=== PATIENT | female | born 1965 ===

== ENCOUNTER 2024-06-06 08:23 | Outpatient (AMB) | payer MEDICAID, SELFPAY ==
[2024-06-06 08:49] VITALS: BP 150/60; PULSE 70; RESP 18; TEMP 36.3; O2SAT 96; BMI 33.5
--- NOTE | 2024-06-06 08:49 | PD.ORTHCLVIS ---
Vital signs 06/06/24 08:49 Height 1.65 m Height Method Measured Weight 91.229 kg Weight Measurement Method Standing Scale BMI 33.5 BP 150/60 H Blood Pressure Source Automatic Cuff Blood Pressure Location Right Upper Arm Position Sitting Respiration 18 Pulse 70 Pulse Source Monitor Temp 97.4 F Temp Source Temporal Artery Scan Pulse Oximetry (%) 96 Oxygen Delivery Method Room Air Med/Allergies Allergies & Medications Allergies No Known Allergies Allergy (Verified 06/06/24 09:05) Medication Reconciliation ibuprofen 400 mg tablet 400 mg PO Q8H 06/06/24 [History Confirmed 06/06/24] meloxicam 7.5 mg tablet 7.5 mg PO QDAY #45 tabs 06/06/24 [Rx] Exam Exam Breathing is nonlabored. Patient has a normal mood and affect. Bilateral extremities were evaluated and demonstrates sensation intact to light touch. Palpable pedal pulses are present. No significant edema is present. Bilateral hips were examined. The patient has no pain with log roll of the hips. Internal rotation to 30 degrees and external rotation to 30 degrees is painless. Negative FADIR. Left knee was examined today. The left knee is in reasonable alignment. Range of motion from 0-120 degrees. Knee is stable to varus and valgus as well as AP translation with <5mm. Patient has a negative McMurrays. There is no pain with patellofemoral compression and no crepitus noted. The knee is nontender to palpation. The right knee was also examined. The right knee is in varus alignment. Range of motion from 0-115 degrees. Knee is stable to varus and valgus as well as AP translation with <5mm. Patient has a negative McMurrays. There is no pain with patellofemoral compression and no crepitus noted. The knee is tender to palpation medially. X-rays demonstrate mild arthritis. This is from [facility]. There is an MRI as well that demonstrates a contusion and extruded medial meniscus Assessment and Plan Problem List (1) Pain in right knee: Status: Acute Plan: Patient is a 59-year-old female with right knee pain and right knee arthritis. The pain is medial. We discussed nonoperative and operative options. We will start with continued conservative treatment We recommend anti-inflammatories And injections. She would like to start with anti-inflammatories and see how it goes from the Office Procedures [facility] Level of Care Nursing/Assessment Patient Status: Initial/New Patient Nursing Assessment/Reassesment: Medication Reconciliation, Update PMH in EMR and Vital Signs Coordination of Care: Complex Care and Chronic Disease 1-5, Education Complex Pt/Fam, Consent,records obtained, informed consent, 1 Ins Authorization, Lab and Imaging orders, Results/Orders obtained and Staff clarify orders Special Needs: Language special needs New Patient Charge New Patient Point Assignment: 1124 New Patient Point Charge: RUG DESIGNER Level 4 ([id number]) MA Intake Visit Data Collection New Patient or Established: New Patient (never been to [facility]) Reason for Visit:: RT KNEE PAIN 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 PCP or OBGYN visit in last 3 months: Yes Hx Now: No Do You Feel Safe at Home: Yes Authorities Contacted: N/A Questionairres Past Medical History Past Medical History Have you ever been diagnosed with any of the following: Respiratory Problems Smoking: No Smoking Cessation Counseling: No Smoking Exposure: No Subjective Visit Visit for: new patient and knee Immunization / Flu Flu Vaccine in the Last 12 Months: No Flu Vaccine Exclusion Criteria: No Exclusion Criteria History of Present Illness Chief complaint: right knee pain Patient is a 59-year-old female with right knee pain has been ongoing for 5 months. She is not any conservative treatment except for physical therapy. She reports that the pain did improve with physical therapy. She reports she initially had considerable swelling but it has improved Pain Pain level (0-10): 6 Pain location: anterior Pain quality: sharp Pain timing: night and stairs Associated signs & symptoms: stiffness Ambulatory data Ambulatory device: none Treatments Number of previous injections: 0 Improvement with previous injections: No Improvement with PT: Yes Improvement with NSAIDS: n/a Review of Systems Review of Systems: All systems negative unless otherwise noted in HPI.
== END 2024-06-06 09:11 | disposition home or self-care (01) ==
PROVIDERS: Supervising Provider Orthopaedic Surgery Adult Reconstructive Orthopaedic Surgery; Visit Provider Orthopaedic Surgery Adult Reconstructive Orthopaedic Surgery
DX: M25.561 Pain in right knee (principal); M17.11 Unilateral primary osteoarthritis, right knee
CPT/HCPCS: 99203; 99204; G0463

== ENCOUNTER 2024-06-29 09:06 | Outpatient (AMB) | payer MEDICAID, SELFPAY ==
[2024-06-29 09:29] VITALS: BP 149/81; PULSE 63; RESP 18; TEMP 36.9; O2SAT 97; BMI 33.9
--- NOTE | 2024-06-29 09:29 | ORTHONT_ITS ---
Vital signs 06/29/24 09:29 Height 1.65 m Height Method Stated Weight 92.334 kg Weight Measurement Method Standing Scale BMI 33.9 BP 149/81 H Blood Pressure Source Automatic Cuff Blood Pressure Location Right Upper Arm Position Sitting Respiration 18 Pulse 63 Pulse Source Monitor Temp 98.4 F Temp Source Temporal Artery Scan Pulse Oximetry (%) 97 Oxygen Delivery Method Room Air Med/Allergies Allergies & Medications Allergies No Known Allergies Allergy (Verified 06/29/24 09:30) Medication Reconciliation ibuprofen 400 mg tablet 400 mg PO Q8H 06/06/24 [History Confirmed 06/29/24] meloxicam 7.5 mg tablet 7.5 mg PO QDAY #45 tabs 06/06/24 [Rx Confirmed 06/29/24] Exam Exam Breathing is nonlabored. Patient has a normal mood and affect. Bilateral extremities were evaluated and demonstrates sensation intact to light touch. Palpable pedal pulses are present. No significant edema is present. Bilateral hips were examined. The patient has no pain with log roll of the hips. Internal rotation to 30 degrees and external rotation to 30 degrees is painless. Negative FADIR. Left knee was examined today. The left knee is in reasonable alignment. Range of motion from 0-120 degrees. Knee is stable to varus and valgus as well as AP translation with <5mm. Patient has a negative McMurrays. There is no pain with patellofemoral compression and no crepitus noted. The knee is nontender to palpation. The right knee was also examined. The right knee is in varus alignment. Range of motion from 0-115 degrees. Knee is stable to varus and valgus as well as AP translation with <5mm. Patient has a negative McMurrays. There is no pain with patellofemoral compression and no crepitus noted. The knee is tender to palpation medially. X-rays demonstrate mild arthritis. This is from [facility]. There is an MRI as well that demonstrates a contusion and extruded medial meniscus Assessment and Plan Problem List (1) Pain in right knee: Status: Acute Plan: Patient is a 59-year-old female with right knee pain and right knee arthritis. The pain is medial. We discussed nonoperative and operative options. We will start with continued conservative treatment We recommend anti-inflammatories And injections. She would like to continue NSAIDs and does not want an injection today Office Procedures [facility] Level of Care Nursing/Assessment Patient Status: Established Patient Nursing Assessment/Reassesment: Medication Reconciliation, Update PMH in EMR and Vital Signs Coordination of Care: Complex Care and Chronic Disease 1-5, Consent,records obtained, informed consent, Education Simp Pt/Fam, Results/Orders obtained and Staff clarify orders Special Needs: Language special needs (TURKISH ) Established Patient Charge Established Patient Point Assignment: 90 Established Patient Point Charge: EP Level 3 (80-115) MA Intake Visit Data Collection New Patient or Established: Established Patient (seen at [facility] within 3 years) Reason for Visit:: RT KNEE SWOLLEN Seen by Clinical Staff ONLY (RN/MA): No Power 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 PCP or OBGYN visit in last 3 months: Yes Hx Now: No Do You Feel Safe at Home: Yes Authorities Contacted: N/A Questionairres Past Medical History Past Medical History Have you ever been diagnosed with any of the following: Respiratory Problems Smoking: No Smoking Cessation Counseling: No Smoking Exposure: No Subjective Visit Visit for: follow up visit and knee (RIGHT KNEE ) Immunization / Flu Flu Vaccine in the Last 12 Months: No Flu Vaccine Exclusion Criteria: Refused by Patient History of Present Illness Chief complaint: right knee pain Patient is a 59-year-old female with right knee pain has been ongoing for 5 months. She is not any conservative treatment except for physical therapy. She reports that the pain did improve with physical therapy. She reports she initially had considerable swelling but it has improved She has done well with NSAIDS Personal History Red flag PMH: none Pain Pain level (0-10): 0 (RIGHT KNEE SWOLLEN ) Pain duration: 1 DAY Pain location: anterior Pain quality: sharp Pain timing: night and stairs Associated signs & symptoms: other (specify) (SWOLLEN ) Ambulatory data Ambulatory device: none Treatments Number of previous injections: 0 Improvement with previous injections: No Number of Physical Therapy sessions: 0 Improvement with PT: Yes Improvement with NSAIDS: n/a Review of Systems Review of Systems: All systems negative unless otherwise noted in HPI.
== END 2024-06-29 10:11 | disposition home or self-care (01) ==
LOC: HODSRG 09:06
PROVIDERS: Supervising Provider Orthopaedic Surgery Adult Reconstructive Orthopaedic Surgery; Visit Provider Orthopaedic Surgery Adult Reconstructive Orthopaedic Surgery
DX: M25.561 Pain in right knee (principal); M17.11 Unilateral primary osteoarthritis, right knee
CPT/HCPCS: 99213; G0463